=== PATIENT | female | born 1970 | race Caucasian/White ===

== ENCOUNTER 2018-04-25 08:43 | Emergency (ER) | payer BC ==
[2018-04-25 08:57] VITALS: BP 114/76
[2018-04-25] MEDS ORDERED: Phenazopyridine TAB* 100 MG PO ONE (09:07)
--- NOTE | 2018-04-25 09:52 | UC ---
Complaint Female HPI - HPI Summary HPI Summary: Pt woke this morning with dysuria, urgency. No hematuria. No fever, hcills. No back pain. No vaginal discharge, itching, odor. No analgesia taken no abdominal pain No other sx Pt's medications reviewed - History Of Current Complaint Chief Complaint: UCGU Stated Complaint: URINARY Time Seen by Provider: 04/25/18 09:07 Hx Obtained From: Patient Hx Last Menstrual Period: 04/09/18 ?: No Onset/Duration: Sudden Onset Pain Intensity: 4 - Allergies/Home Medications Allergies/Adverse Reactions: Allergies Allergy/AdvReac Type Severity Reaction Status Date / Time No Known Allergies Allergy Verified 04/25/18 08:54 Home Medications: Home Medications Control Pill 1 tab PO DAILY 04/25/18 [History] PMH/Surg Hx/FS Hx/Imm Hx Previously Healthy: Yes - Surgical History Surgical History: None - Family History Known Family History: Positive: None - Social History Occupation: Employed Full-time Lives: With Family Alcohol Use: None Substance Use Type: None Smoking Status (MU): Never Smoked Tobacco Review of Systems Genitourinary: Dysuria, Frequency, Urgency All Other Systems Reviewed And Are Negative: Yes Physical Exam - Summary Physical Exam Summary: Vital Signs Reviewed: Yes A+Ox3, no distress Eyes: Conjunctiva Clear, monica, eom intact and full ENT: Hearing grossly normal TM x 2 clear mmoist no exudate neck: supple Respiratory: Positive: No respiratory distress, No accessory muscle use CTA throughout no w/r Cardiovascular: skin color reflect adequate perfusion RRR nl s1 s2 no m/r abd soft mild suprapubic discomfort no guarding, no rebound no CVA Musculoskeletal Exam: GRANADOS x 4 without difficulty Neurological: Positive: Alert, ambulatory without difficulty Psychological: Positive: Normal Response To Family Skin: Positive: no rash, no ecchymosis Triage Information Reviewed: Yes Vital Signs: Initial Vital Signs Temp 98.2 F 04/25/18 08:51 Pulse 86 04/25/18 08:51 Resp 16 04/25/18 08:51 BP 114/76 04/25/18 08:51 Pulse Ox 100 04/25/18 08:51 Complaint Female Dx - Course Course Of Treatment: Pt with dysuria, frequency,urgency this am. VSS. exam c/ w uti - no concern for pyelo. urinalysis c/w UTI. hyrate. motrin/apap. rest. pyridium. culture. abx - Differential Dx/Diagnosis Provider Diagnoses: UTI Discharge - Sign-Out/Discharge Documenting (check all that apply): Patient Departure - Discharge Plan Condition: Stable Disposition: HOME Prescriptions: Nitrofurantoin Monohyd/M-Cryst [Macrobid 100 mg Capsule] 100 mg PO BID #14 cap Phenazopyridine TAB* [Pyridium 100 mg TAB*] 100 mg PO TID PRN #9 tab PRN Reason: burning with urination Referrals: Breana Bowman MD [Primary Care Provider] - Additional Instructions: - stay well hydrated - drink plenty of non-alcoholic, non caffinated beverages - your urine will be further tested - if you require any changes to your treatment, we will contact you - this usually take 2 days - Contact your primary doctor to arrange a follow-up appointment next week. Contact your doctor or return with questions or concerns - Take your antibiotics exactly as prescribed until gone - Take pyridium as prescribed for discomfort. This will make your urine blaze orange - this is normal - Okay to alternate ibuprofen (Advil, Motrin) and Tylenol every 3 hours for pain. Take with food - Call your doctor or return with questions or concerns - Billing Disposition and Condition Condition: STABLE Disposition: Home
== END 2018-04-25 09:54 | disposition home or self-care (01) ==
LOC: UCCORT 08:43
DX: N39.0 Urinary tract infection, site not specified (principal)
CPT/HCPCS: 81003; 87086; 99212; A9270-GY; G0463